=== PATIENT | female | born 2000 | race Caucasian/White ===

== ENCOUNTER 2023-05-09 16:24 | Emergency (ER) | payer OTHER ==
[~2023-05-09] VITALS: Ht 188 cm; Wt 127.3 kg
[~2023-05-09 16:24] MED LIST: AMOXICILLIN 8751 TAB PO
[2023-05-09 16:36] VITALS: TEMP 98.1
[2023-05-09 17:46] VITALS: BP 130/96
[2023-05-09] MEDS ORDERED: NORCO 325 MG-51 TAB PO (19:02)
[2023-05-09 19:18] VITALS: PULSE 95
== END 2023-05-09 19:18 | disposition home or self-care (01) ==
LOC: COL.ER 16:24
DX: S73.101A Unspecified sprain of right hip, initial encounter (principal); X50.1XXA Overexertion from prolonged static or awkward postures, initial encounter